=== PATIENT | female | born 1995 | race Caucasian/White ===

== ENCOUNTER 2020-09-01 20:34 | Emergency (ER) | payer OTHER ==
[~2020-09-01] VITALS: Ht 167.6 cm; Wt 97.5 kg
[2020-09-01] MEDS ORDERED: AMOXICILLIN/CLAVULANATE K 500 MG TAB PO STA (20:53)
[2020-09-01] MEDS ORDERED: AUGMENTIN 500-1 EACH PO (20:58)
[2020-09-01] MEDS ORDERED: TETANUS/DIPHTHERIA TOX ADULT 0.5 ML SYR IM ONE (21:00)
[2020-09-01] MEDS ORDERED: AMOXICILLIN/CLAVULANATE K 875 MG TAB ONE (21:07)
[2020-09-01] MEDS ORDERED: TETANUS/DIPHTHERIA TOX ADULT 0.5 ML SYR ONE (21:08)
== END 2020-09-01 21:17 | disposition home or self-care (01) ==
LOC: FSED 20:39
DX: S61.451A Open bite of right hand, initial encounter (principal); L08.9 Local infection of the skin and subcutaneous tissue, unspecified; W55.01XA Bitten by cat, initial encounter; Y92.89 Other specified places as the place of occurrence of the external cause
CPT/HCPCS: 90471; 90714; 99283